=== PATIENT | female | born 1980 | race Caucasian/White ===

== ENCOUNTER 2016-06-24 17:41 | Emergency (ER) | payer BC ==
[~2016-06-24] VITALS: Ht 172.7 cm; Wt 65.8 kg
--- NOTE | 2016-06-24 17:50 | NUR ---
[id number], came to ER c/o right facial paralysis x 2 days, skin is warm and dry. 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 resp is even and unlabored with nad noted. speech is clear and coherent. Dr Guzman at BS for eval.
[2016-06-24 18:19] LABS: BASOPHILS % (AUTO) 0.4 % (0.0-2.0); EOSINOPHILS # (AUTO) 0.2 /CMM (0.0-0.7); HEMATOCRIT 38 % (33-45); HEMOGLOBIN 13.3 g/dL (11.5-14.8); LYMPHOCYTES # (AUTO) 1.8 /CMM (0.8-4.8); LYMPHOCYTES % (AUTO) 29.8 % (20.0-44.0); MEAN CORPUSCULAR HEMOGLOBIN 31 PG (26.0-33.0); MEAN CORPUSCULAR HGB CONC 35 g/dl (31.0-36.0); MEAN CORPUSCULAR VOLUME 89 fL (82-100); MONOCYTES # (AUTO) 0.4 /CMM (0.1-1.30); MONOCYTES % (AUTO) 6.6 % (2.0-12.0); NEUTROPHILS # (AUTO) 3.7 /CMM (1.8-8.9); NEUTROPHILS % (AUTO) 60.2 % (43.0-81.0); PLATELET COUNT (AUTO) 204 /CMM (150-450); RED BLOOD CELL COUNT(AUTO) 4.33 MIL/uL (4.0-5.2); WHITE BLOOD COUNT (AUTO) 6.1 K/uL (4.3-11.0)
[2016-06-24 18:22] LABS: CALCIUM, SERUM 9.1 mg/dL (8.5-10.1); CREATININE 0.8 mg/dL (0.6-1.3); POTASSIUM 3.8 mmol/L (3.5-5.1)
--- NOTE | 2016-06-24 18:23 | NUR ---
PT TAKEN TO CT VIA WC
--- NOTE | 2016-06-24 18:25 | NUR ---
Patient transported for CT head via wheelchair.
[2016-06-24 18:26] LABS: INR 0.9 (0.87-1.13); PROTHROMBIN TIME 9.3 SECS (9.5-12.7)
[2016-06-24 18:29] LABS: ALBUMIN 4.1 g/dL (3.4-5.0); BILIRUBIN,DIRECT 0.2 mg/dL (0.0-0.2); BILIRUBIN,TOTAL 0.7 mg/dL (0.2-1.0); TOTAL PROTEIN, SERUM 7.7 g/dL (6.4-8.2)
--- NOTE | 2016-06-24 19:20 | NUR ---
report given to ED, RN for FITO
[2016-06-24] MEDS ORDERED: HYDROCODONE/APAP 5/325MG 1 EACH TABLET ONE (19:25)
[2016-06-24] MEDS ORDERED: HYDROCODONE/APAP 5/325MG 1 EACH TABLET PO ONE (19:30)
[2016-06-24] MEDS ORDERED: CT SWABBABLE VALVE TRANS SET 1 EA INFUS.SET MC ONE (19:32)
[2016-06-24] MEDS ORDERED: IV NS 0.9% 250 ML IV ONE (19:32)
[2016-06-24] MEDS ORDERED: IOHEXOL-300 100 ML VIAL IV ONE (19:32)
--- NOTE | 2016-06-24 19:41 | NUR ---
PT TRANSPORTED TO RADIOLOGY FOR CT NECK.
--- NOTE | 2016-06-24 19:57 | NUR ---
PT BACK FROM RADIOLOGY. PENDING CT RESULT.
--- NOTE | 2016-06-24 20:35 | NUR ---
DR. FRANKS PAGED PER ER ORDER.
--- NOTE | 2016-06-24 21:22 | NUR ---
CALLED AT , PHONE JUST KEPT RINGING
--- NOTE | 2016-06-24 21:23 | NUR ---
CALLED (NEUROLOGIST), SHE IS NOT SOUR BLEACHING PLEATER.
--- NOTE | 2016-06-24 21:25 | NUR ---
CALLED (NEUIROLOGIST), LEFT MESSAGE ON VOICEMAIL
--- NOTE | 2016-06-24 21:29 | NUR ---
ER MD AT BEDSIDE TALKING TO PT REGARDING HLOC TRANSFER.
--- NOTE | 2016-06-24 21:38 | NUR ---
PT STATES "I DON'T WANT TO BE ADMITTED VIA AMBULANCE, I WILL DRIVE MYSELF THERE IF I HAVE TO". ER MADE AWARE.
--- NOTE | 2016-06-24 21:39 | NUR ---
CALLED [facility], PRESENTED PTJEANINE INFORMED ME THERE ARE NO BEDS AT [facility], OR [facility]
--- NOTE | 2016-06-24 21:45 | NUR ---
CALLED [facility], SPOKE WITH KADI HORAN, PRESENTED PT, FAXED FACESHEET AND CT RESULTS TO [phone]
--- NOTE | 2016-06-24 21:48 | NUR ---
PT STATES "I WANT TO LEAVE, JUST PULL THE IV OUT". LEONIDES WHITFIELD MADE AWARE.
--- NOTE | 2016-06-24 21:51 | NUR ---
LEONIDES WHITFIELD AT BEDSIDE TALKING TO PT.
--- NOTE | 2016-06-24 22:04 | NUR ---
CALLED [facility] TRANSFER [facility], , SPOKE WITH CAMRON, PRESENTED PT, FAXED FACESHEET AND CT RESULTS TO [phone]
--- NOTE | 2016-06-24 22:11 | NUR ---
CALLED [facility]- CASE PRESENTED.
--- NOTE | 2016-06-24 22:35 | NUR ---
case presented to [facility] for EMTALA transfer to [facility]; - Dr. Cooley will be paged per transfer line.
--- NOTE | 2016-06-24 22:40 | NUR ---
dr. medeiros talking to dr. espinosa regarding pt.
--- NOTE | 2016-06-24 22:48 | NUR ---
er md talking to [facility] er md regarding pt transfer.
--- NOTE | 2016-06-24 22:54 | NUR ---
report called to Reggie WOLF at [facility]. awaiting transport.
--- NOTE | 2016-06-24 22:55 | NUR ---
RENY FROM [facility] REQUESTED FACE SHEET FAXED TO [phone]. PT GOING TO [facility] ER; ACCEPTED BY DR. HO. NUMBER FOR REPORT: [phone]
--- NOTE | 2016-06-24 23:20 | NUR ---
report given to cash checker transport. pt will be transported vi acls protocol.
[2016-06-24 23:23] VITALS: BP 122/77
== END 2016-06-24 23:24 | disposition short-term general hospital (02) ==
LOC: ER 17:46
DX: G51.0 Bell's palsy (principal); E07.9 Disorder of thyroid, unspecified; K74.3 Primary biliary cirrhosis
CPT/HCPCS: 36415; 70450-TC; 70491-TC; 80048-TC; 80076-TC; 85025-TC; 85730-TC; A4606; J7050; Q9967; Z7610